=== PATIENT | male | born 1930 | race Caucasian/White ===

== ENCOUNTER 2017-11-10 09:12 | Emergency (ER) | payer MEDICARE, OTHER ==
[~2017-11-10] VITALS: Ht 193 cm; Wt 102.1 kg
[~2017-11-10 09:12] MED LIST: DOCSEN PO; HYDR1TAB94 PO; LOSHYD PO; MOMENI INH; MULTIVITAMIN; TAMS.4ER PO
[2017-11-10 09:51] LABS: Source, Urine Voided
[2017-11-10 10:00] LABS: Bilirubin, Urine Neg (Neg); Blood, Urine 4+ (Neg); Glucose Qualitative, Urine Neg (Neg); Ketones, Urine Neg (Neg); Leukocyte Esterase, Urine 1+ (Neg); Nitrite, Urine Neg (Neg); Protein, Urine 4+ (Neg); Urobilinogen, Urine NORM (Normal)
[2017-11-10] MEDS ORDERED: ASPI81CH PO (10:01)
[2017-11-10] MEDS ORDERED: ASCO500 PO (10:01)
[2017-11-10] MEDS ORDERED: Fish Oil Conc1000 MG PO (10:01)
[2017-11-10] MEDS ORDERED: Hair, Skin & N1 EACH PO (10:02)
[2017-11-10 10:14] LABS: BASOPHILS ABSOLUTE AUTO 0.06 K/mm3 (0.00-0.23); BASOPHILS PERCENT AUTO 1 % (0-2); EOSINOPHILS ABSOLUTE AUTO 0.14 K/mm3 (0.00-0.68); EOSINOPHILS PERCENT AUTO 1 % (0-6); Hematocrit 41.3 % (37.0-53.0); Hemoglobin 13.7 g/dL (13.5-17.5); IMMATURE GRAN ABSOLUTE AUTO 0.03 K/mm3 (0.00-0.10); IMMATURE GRAN PERCENT AUTO 0 % (0-1); LYMPHOCYTES ABSOLUTE AUTO 1.21 K/mm3 (0.84-5.20); LYMPHOCYTES PERCENT AUTO 11 % (21-46); MONOCYTES ABSOLUTE AUTO 0.67 K/mm3 (0.16-1.47); MONOCYTES PERCENT AUTO 6 % (4-13); Mean Corpuscular HGB 31.7 pg (26.0-34.0); Mean Corpuscular HGB Conc 33.2 g/dL (31.5-36.5); Mean Corpuscular Volume 96 fL (80-100); Mean Platelet Volume 9.7 fL (9.1-12.4); NEUTROPHILS ABSOLUTE AUTO 8.49 K/mm3 (1.96-9.15); NEUTROPHILS PERCENT AUTO 80 % (41-73); Platelet Count 231 K/mm3 (150-400); RDW Coefficient Variation 12.9 % (11.7-14.2); RDW Standard Deviation 46.2 fL (35.1-46.3); Red Blood Cell Count 4.32 M/mm3 (4.30-5.90)
[2017-11-10 10:28] LABS: Alanine Aminotransfer (ALT/SGP 15 U/L (12-78); Albumin, Blood 3.8 g/dL (3.4-5.0); Alk Phos 94 U/L (50-136); Anion Gap 6 mmol/L (6-16); Aspartate Aminotrans (AST/SGOT 16 U/L (12-37); Bilirubin, Total 0.6 mg/dL (0.1-1.0); Blood Urea Nitrogen 27 mg/dL (8-24); CO2, Blood 27 mmol/L (21-32); Calcium, Blood 8.8 mg/dL (8.5-10.1); Chloride, Blood 107 mmol/L (98-108); Creatinine, Blood 0.97 mg/dL (0.60-1.20); Globulin, Blood 3.9 g/dL (2.2-4.0); Glomerular Filtration Rate >60 (60-); Glucose, Blood 114 mg/dL (70-99); International Normalized Ratio 1.01; Potassium, Blood 3.7 mmol/L (3.5-5.5); Prothrombin Time Results 10.5 Sec (9.7-11.5); Sodium, Blood 140 mmol/L (136-145); Total Protein, Blood 7.7 g/dL (6.4-8.2)
[2017-11-10 10:42] LABS: Appearance, Urine Bloody (Clear); Color, Urine Red (P-Yellow); Red Blood Cells, Urine TNTC /hpf (0-2)
[2017-11-10 10:43] LABS: Bacteria Few /hpf; Squamous Epithelial Cells Not Seen /hpf (Few)
[2017-11-10] MEDS ORDERED: Macrodantin100 MG PO (13:18)
[2017-11-10] MEDS ORDERED: Zofran8 MG PO (13:18)
[2017-11-10] MEDS ORDERED: Percocet 5-3251 EACH PO (13:18)
== END 2017-11-10 15:17 | disposition home or self-care (01) ==
LOC: ER 09:12
PROVIDERS: Emergency Medicine
DX: R31.9 Hematuria, unspecified (principal); R33.9 Retention of urine, unspecified; Z79.82 Long term (current) use of aspirin; Z90.79 Acquired absence of other genital organ(s); N40.0 Benign prostatic hyperplasia without lower urinary tract symptoms; Z87.891 Personal history of nicotine dependence
CPT/HCPCS: 36415; 51700; 51702; 51798; 76770; 80053; 81001; 85025; 85610; 87086; 96374; 96375; 99284; J1170; J2405

== ENCOUNTER → 2019-02-24 | Outpatient (CLI) | payer MEDICARE, OTHER ==
[~2019-02-24] MED LIST changes: +ASCO500 PO; +ASPI81CH PO; +Fish Oil Conc1000 MG PO; +Hair, Skin & N1 EACH PO; +Macrodantin100 MG PO; +Percocet 5-3251 EACH PO; +Zofran8 MG PO
== END | disposition home or self-care (01) ==
LOC: LAB SHORT 12:08 → LAB 12:08
DX: R31.0 Gross hematuria (principal)
CPT/HCPCS: 87086

== ENCOUNTER 2020-08-11 07:25 | Day surgery (SDC) | payer MEDICARE, OTHER ==
[~2020-08-11] VITALS: Ht 190.5 cm; Wt 97.7 kg
[~2020-08-11 07:25] MED LIST changes: +ELIQUIS5 MG PO; +FLUT.05NI; +METO100ER PO; +PRED20 PO
--- NOTE | 2020-08-11 09:32 | NUR ---
08/11/20 0932 Natacha Cortés LATE ENTRY: PT ON CONTINOUS O2 VIA NC AT 2L DURING MED ADMINITRATION
--- NOTE | 2020-08-11 09:49 | NUR ---
08/11/20 0949 CHICHO JASSO LARGE ARM SLING GIVEN AND INVENTORIED. ALSO ICE PACK GIVEN. WEDDING RIGHT,HEARING AIDS,CLOTHING AND SHOES RETURNED IN STEPDOWN. PT GREGORIO UPON DC.
== END 2020-08-11 09:30 | disposition home or self-care (01) ==
LOC: ORSCSDS 07:25
PROVIDERS: Orthopaedic Surgery
PROC: 01N54ZZ Release Median Nerve, Percutaneous Endoscopic Approach (ICD-10-PCS; principal; 2020-08-11 08:30)
DX: G56.02 Carpal tunnel syndrome, left upper limb (principal); I10 Essential (primary) hypertension; E78.5 Hyperlipidemia, unspecified; I48.91 Unspecified atrial fibrillation; Z79.01 Long term (current) use of anticoagulants; Z79.899 Other long term (current) drug therapy
CPT/HCPCS: J2250; J3010

== ENCOUNTER 2021-02-18 01:23 | Inpatient (IN) | payer MEDICARE, OTHER ==
[~2021-02-18] VITALS: Ht 193 cm; Wt 99.8 kg
[2021-02-18 01:56] LABS: Hematocrit 46.3 % (37.0-53.0); Hemoglobin 15.5 g/dL (13.5-17.5); Mean Corpuscular HGB Conc 33.5 g/dL (31.5-36.5); Mean Corpuscular Volume 96 fL (80-100); Mean Platelet Volume 9.3 fL (9.1-12.4); Platelet Count 137 K/mm3 (150-400); RDW Coefficient Variation 13.4 % (11.7-14.2); RDW Standard Deviation 47.6 fL (35.1-46.3); Red Blood Cell Count 4.84 M/mm3 (4.30-5.90); White Blood Cell Count 2.86 K/mm3 (4.00-11.30)
[2021-02-18 02:06] LABS: Alanine Aminotransfer (ALT/SGP 14 U/L (12-78); Albumin/Globulin Ratio 0.8 (0.8-1.8); Alk Phos 73 U/L (50-136); Anion Gap 9 mmol/L (6-16); Aspartate Aminotrans (AST/SGOT 14 U/L (12-37); Bilirubin, Total 0.7 mg/dL (0.1-1.0); Blood Urea Nitrogen 26 mg/dL (8-24); Bun/Creatinine Ratio 20.6 (12.0-20.0); CO2, Blood 23 mmol/L (21-32); Calcium, Blood 8.7 mg/dL (8.5-10.1); Chloride, Blood 105 mmol/L (98-108); Creatinine, Blood 1.26 mg/dL (0.60-1.20); Glomerular Filtration Rate 57 (60-); Glucose, Blood 108 mg/dL (70-99); Potassium, Blood 4.3 mmol/L (3.5-5.5); Sodium, Blood 137 mmol/L (136-145); Troponin I <0.015 ng/mL (0.000-0.040)
[2021-02-18 02:27] LABS: BAND PERCENT MAN 28 % (0-8); BASOPHILS PERCENT MAN 0 % (0-2); EOSINOPHILS PERCENT MAN 0 % (0-6); LYMPHOCYTES ABSOLUTE MAN 0.28 K/mm3 (0.84-5.20); LYMPHOCYTES PERCENT MAN 10 % (21-46); MONOCYTES ABSOLUTE MAN 0.02 K/mm3 (0.16-1.47); MONOCYTES PERCENT MAN 1 % (4-13); NEUTROPHILS ABSOLUTE MAN 2.54 K/mm3 (1.96-9.15); SEG NEUTROPHILS PERCENT MAN 61 % (41-73); TOTAL CELLS COUNTED 100
[2021-02-18 02:30] LABS: Source, Urine Catheter
[2021-02-18 02:34] LABS: Bilirubin, Urine Neg (Neg); Blood, Urine 5+ (Neg); Glucose Qualitative, Urine Neg (Neg); Ketones, Urine 2+ (Neg); Leukocyte Esterase, Urine 3+ (Neg); Nitrite, Urine Pos (Neg); Protein, Urine 3+ (Neg); Specific Gravity, Urine 1.015 (1.003-1.022); Urobilinogen, Urine NORM (Normal)
[2021-02-18 02:37] LABS: Appearance, Urine Cloudy (Clear); Color, Urine Yellow (P-Yellow)
[2021-02-18 02:43] LABS: Bacteria Mod /hpf; Red Blood Cells, Urine TNTC /hpf (0-2); Squamous Epithelial Cells Not Seen /hpf (Few); White Blood Cells, Urine TNTC /hpf (0-5)
--- NOTE | 2021-02-18 06:38 | NUR ---
ADMIT NOTE/SHIFT SUMMARY PT ARRIVED TO ICU FROM ED VIA ED STRETCHER AT APPROX 0430. THE PT WAS SLID FROM ED STRETCHER TO ICU BED BY 4 STAFF. PT A&O X3, FOLLOWS COMMANDS, THOUGH A POOR HISTORIAN. SP02>92% ON RA. TELEMETRY READS AFIB, HR 110'S-130'S. BP SOFT AFTER 2L NS BOLUS IN ED. CALL PLACED TO MD TIERNEY. MD TIERNEY W/ ORDERS FOR 2L LR BOLUS. IF LR BOLUS' DONT RAISE BP, THEN CHANGE TO ICU STATUS AND START LEVOPHED. LEVOPHEN STARTED NOW, PT CHANGED TO ICU STATUS. PT DENIES PAIN. PT HAS FERNANDEZ CATHETER DRAINING YELLOW, CLOUDY, FOUL SMELLING URINE TO GRAVITY. PT HAD CARITO INCONTINENT BM UPON ARRIVAL TO ICU. PT ORIENTED TO ROOM, CALL LIGHT. PT STATES HIS , WHO WAS WITH HIM IN ER, WILL BE VISITING TODAY. CALL LIGHT IN REACH. WILL GIVE REPORT TO ONCOMING NURSE.
--- NOTE | 2021-02-18 08:15 | NUR ---
PREPARING TO TRANSPORT TO CT FOR ABDOMINAL VIEWS. PT UNDERSTANDS. LAB DRAW AND MEDS GIVEN. SMOOTHE TRANSIT TO CT, TO TABLE THEN BACK TO BED. PT TOLERATED WELL. HE DENIES ANY COMPLAINTS, ONLY THAT HE IS WARM. HE IS USING A TABLE FAN AND KEEPING HIS COVERS OFF. BP REMAINS LABILE, TITRATING PER SYSTOLIC NUMBER PER ORDERS. SEE FLOWSHEET. IV'S PATENT, L AND R SIDE, FERNANDEZ TO GRAVITY, HOOKED UP TO TEMPERATURE PROBE.
--- NOTE | 2021-02-18 12:57 | NUR ---
YVETTE HAS BEEN BUSY TODAY, HE HAD A CHEST XRAY AND THEN WORKED WITH PHYSICAL THERAPY. HE TRIED SOME LUNCH ONLY HAD A FEW BITES, SAYS HE DOESN'T FEEL LIKE EATING. HE VISITED WITH . HIS BLOOD PRESSURES ARE LEVELING OUT SOME AND I HAVE BEEN ABLE TO TITRATE DOWN THE LEVOPHED. HE IS PLEASANT, ORIENTED AND VERY COOPERATIVE. HE CONTINUES TO DENY ANY PAIN OR DISCOMFORT.
--- NOTE | 2021-02-18 16:08 | NUR ---
attempted to see patient will return.
--- NOTE | 2021-02-18 16:34 | NUR ---
YVETTE CALLED US IN THE ROOM TO LET US KNOW THAT HE FELT THAT HIS URINE WAS LEAKING FROM HIS BAG. AREA CHECKED, SOME GREEN SLIME NOTED WELL WETNESS BETWEEN HIS THIGHS. PT CLEANED UP, CATHETER STAT LOCK REPOSITIONED WITH LESS PULL. PT THANKFUL.
--- NOTE | 2021-02-18 18:32 | NUR ---
YVETTE HAS BEEN RESTING THIS AFTERNOON, HE EXPERIENCED ANOTHER EPISODE OF LEAKING AROUND HIS CATHETER, CLEANED UP AND GAUZE PLACED AT THE MEATUS FOR COMFORT. HE DENIES ANY PAIN, HIS FERNANDEZ CONTINUES TO DRAIN CLOUDY YELLOW WITH CHUNKY SEDIMENT, TEMPERATURE REMAINS 99-100. FLUIDS ORALLY RESTRICTED. IV INFUSING WITH ANTIBIOTIC ZOSYN AND THE LEVOPHED AT 4MCG/MIN. PT PLEASANT AND CHEERFUL.
--- NOTE | 2021-02-18 20:15 | NUR ---
ASSUMPTION OF CARE REPORT RECEIVED FROM CIRILO RAYO. PT IS A VERY PLEASANT GENTLEMAN WHO IS ALERT AND ORIENTED. PT CURRENTLY RECEIVING LEVOPHED AT 4 MCG/MIN AND NS AT 50 ML/HR. VSS, AFIB ON MONITOR HR 90-120'S, SBP >90 ON LEVOPHED, SPO2 >92% ON RA. FERNANDEZ PATENT AND DRAINING TO GRAVITY, SOME LEAKAGE T/O THE DAY, WILL CONTINUE TO MONITOR. PT WITH WEAK EXTREMITIES X 4, NEEDS ASSISTANCE WITH REPOSITIONING. CALL LIGHT WITHIN REACH, CALLS APPROPRIATELY.
[2021-02-19 03:39] LABS: Hematocrit 36.3 % (37.0-53.0); Hemoglobin 12.4 g/dL (13.5-17.5); Mean Corpuscular HGB 31.9 pg (26.0-34.0); Mean Corpuscular HGB Conc 34.2 g/dL (31.5-36.5); Mean Corpuscular Volume 93 fL (80-100); Mean Platelet Volume 10.1 fL (9.1-12.4); Platelet Count 125 K/mm3 (150-400); RDW Coefficient Variation 13.5 % (11.7-14.2); RDW Standard Deviation 46.2 fL (35.1-46.3); Red Blood Cell Count 3.89 M/mm3 (4.30-5.90)
[2021-02-19 03:49] LABS: Alanine Aminotransfer (ALT/SGP 15 U/L (12-78); Albumin, Blood 2.2 g/dL (3.4-5.0); Albumin/Globulin Ratio 0.6 (0.8-1.8); Alk Phos 56 U/L (50-136); Anion Gap 7 mmol/L (6-16); Aspartate Aminotrans (AST/SGOT 30 U/L (12-37); Bilirubin, Total 0.7 mg/dL (0.1-1.0); Blood Urea Nitrogen 17 mg/dL (8-24); Bun/Creatinine Ratio 18.9 (12.0-20.0); CO2, Blood 23 mmol/L (21-32); Calcium, Blood 7.6 mg/dL (8.5-10.1); Chloride, Blood 108 mmol/L (98-108); Globulin, Blood 3.4 g/dL (2.2-4.0); Glomerular Filtration Rate >60 (60-); Glucose, Blood 116 mg/dL (70-99); Potassium, Blood 3.5 mmol/L (3.5-5.5); Sodium, Blood 138 mmol/L (136-145); Total Protein, Blood 5.6 g/dL (6.4-8.2)
[2021-02-19 04:11] LABS: BAND PERCENT MAN 21 % (0-8); BASOPHILS PERCENT MAN 0 % (0-2); EOSINOPHILS PERCENT MAN 0 % (0-6); LYMPHOCYTES ABSOLUTE MAN 0.17 K/mm3 (0.84-5.20); LYMPHOCYTES PERCENT MAN 2 % (21-46); MONOCYTES ABSOLUTE MAN 0.25 K/mm3 (0.16-1.47); MONOCYTES PERCENT MAN 3 % (4-13); NEUTROPHILS ABSOLUTE MAN 8.17 K/mm3 (1.96-9.15); SEG NEUTROPHILS PERCENT MAN 74 % (41-73); TOTAL CELLS COUNTED 100
--- NOTE | 2021-02-19 06:39 | NUR ---
SHIFT SUMMARY PT SLEPT MAJORITY OF THIS SHIFT. VERY PLEASANT WHEN AWAKE, USES CALL LIGHT APPROPRIATELY. SPO2 >95% ON RA, SBP >90 ON 1 MCG LEVOPHED, HR 70-80'S AFIB ON MONITOR. ABLE TO MOVE SELF AROUND IN BED, NEEDS HELP WITH REPOSITIONING AND BOOSTING IN BED. FERNANDEZ PATENT, CLOUDY YELLOW URINE WITH SEDIMENT DRAINING TO GRAVITY; NO LEAKAGE NOTED THIS SHIFT.
--- NOTE | 2021-02-19 08:00 | NUR ---
YVETTE SAID HE HAD A GOOD NIGHT, HE IS FEELING BETTER TODAY AND WOULD TRY TO EAT. HE HAS DIMINISHED LUNG SOUNDS, BOWEL TONES ACTIVE, FERNANDEZ DRAINING CLOUDY YELLOW RETURN, PULSES GOOD, IV SITES INFUSING WELL. BP'S GOOD FOR LAST 4, HAVE PLACED LEVOPHED ON STANDBY.
--- NOTE | 2021-02-19 09:00 | NUR ---
YVETTE DABBLED WITH HIS BREAKFAST, HAD A FEW BITES HERE AND THERE, DRANK HIS JUICE. HIS BP LESS STABLE, RESTARTED THE LEVO @ 1MCG/MIN. REPOSITIONED TO COMFORT. ASKING FOR A COUPLE OF ITEMS FROM HIS . CONTINUES TO DENY ANY NEEDS AT THIS TIME.
--- NOTE | 2021-02-19 12:52 | NUR ---
Pt admitted for Severe Sepsis. Pt's medical history and comorbidities include: HTN, Afib, BPH, Bladder Spasm, CKD3, Chronic Morgan, and Abnormal Stress Test. Pt sitting up in chair upon arrival. Pt is A&O and denies pain at this time. Pt denies dyspnea, nausea, and anxiety. 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 Pt lives at home with his . Pt has 4 daughters who live in [place]. Pt also has grandchildren and great grandchildren. Pt reports at baseline having the ability to ambulate around the house with a cane and using furniture for stability. Pt reports being a pentecostal and denies need for tar man visit. Listened as Pt reports planning for the future and states at somepoint he will have to think about moving to an assited living or senior care. Engaged in therapeutic discussion regarding code status. Educated on life sustaining treatments including risk factors and implications of CPR. Pt reports needing to speak with his regarding his wishes. He states this will be her decision. Discussed the importance of including spouse in the conversation and the importance of considering his own wishes. Provided written information regarding CPR per request from Pt. Provided book "Hard Choices for [place] People" and instructed CPR information is in chapter one. Pt expresses appreciation of visit and reports no other concerns at this time. Instructed Pt to request this RN to return if he or his have any questions. Spoke with primary RN Priscila and discussed case. Palliative Care will remain available.
--- NOTE | 2021-02-19 18:19 | NUR ---
YVETTE REFUSED DINNER, ASKED FOR MORE TO DRINK, HIS TEMP NOTED TO BE 102.2, FACE FLUSHED, PASSIVE LEG RAISE DONE WITH NOTED CHANGE IN BP. (98/75 TO 111/82) DR. WING NOTIFIED, ORDERS RECEIVED. PT CONTINUES WITH FLUCTUATIONS IN HEART RATE AND BLOOD PRESSURE, CONTINUES TO DENY ANY COMPLAINTS OTHER THAN THIRST. HE HAS SAID HE FEELS BETTER TODAY THAN YESTERDAY. URINE OUTPUT 650ML WITH ABOUT 1100 OF PO FLUIDS. LEVOPHED HAS BEEN OFF SINCE D/C'D BY . PT CONTINUES IN GOOD SPIRITS AND JOKING WITH STAFF.
--- NOTE | 2021-02-19 22:10 | NUR ---
UPDATE SPOKE WITH HOSPITALIST ANDERSON REGARDING PT'S SBP IN 80'S AND HR 130-140'S. NEW ORDERS PLACED FOR DIGOXIN AND 500 ML NS BOLUS.
[2021-02-20 03:15] LABS: Hematocrit 34.5 % (37.0-53.0); Hemoglobin 11.8 g/dL (13.5-17.5); Mean Corpuscular HGB Conc 34.2 g/dL (31.5-36.5); Mean Corpuscular Volume 94 fL (80-100); Mean Platelet Volume 9.6 fL (9.1-12.4); Platelet Count 102 K/mm3 (150-400); RDW Coefficient Variation 13.3 % (11.7-14.2); RDW Standard Deviation 45.8 fL (35.1-46.3); Red Blood Cell Count 3.69 M/mm3 (4.30-5.90); White Blood Cell Count 5.71 K/mm3 (4.00-11.30)
[2021-02-20 03:43] LABS: BAND PERCENT MAN 11 % (0-8); BASOPHILS PERCENT MAN 0 % (0-2); EOSINOPHILS PERCENT MAN 0 % (0-6); LYMPHOCYTES % ATYPICAL MANUAL 1 % (0-0); LYMPHOCYTES ABSOLUTE MAN 0.34 K/mm3 (0.84-5.20); LYMPHOCYTES PERCENT MAN 5 % (21-46); MONOCYTES ABSOLUTE MAN 0.28 K/mm3 (0.16-1.47); MONOCYTES PERCENT MAN 5 % (4-13); NEUTROPHILS ABSOLUTE MAN 5.08 K/mm3 (1.96-9.15); SEG NEUTROPHILS PERCENT MAN 78 % (41-73); TOTAL CELLS COUNTED 100
--- NOTE | 2021-02-20 05:49 | NUR ---
SHIFT SUMMARY PT GOT MINIMAL SLEEP THIS SHIFT. FERNANDEZ LEAKING THIS AM, BLADDER SCAN DONE NO RETENTION, FERNANDEZ BALLOON DEFLATED HAD 7 ML'S REINFLATED WITH 10 ML'S. CONTINUES TO LEAK. URINE WITH SEDIMENT, CLOUDY, PINK TINGED. AFIB ON MONITOR HR 80-90'S, SBP 100-115'S, SPO2 96% ON RA. DIGOXIN 0.25 MG GIVEN TWICE THIS SHIFT TO DECREASE HR FROM 140'S. 500 ML NS BOLUS GIVEN FOR SBP'S IN 80'S. NS CURRENTLY INFUSING AT 75 ML/HR. PT DENIED CHEST PAIN T/O SHIFT. ABLE TO REPOSITION SELF WITH MINIMAL HELP. CALL LIGHT USED APPROPRIATELY.
[2021-02-20 07:05] LABS: Anion Gap 4 mmol/L (6-16); Blood Urea Nitrogen 16 mg/dL (8-24); Bun/Creatinine Ratio 18.1 (12.0-20.0); CO2, Blood 25 mmol/L (21-32); Calcium, Blood 7.5 mg/dL (8.5-10.1); Chloride, Blood 109 mmol/L (98-108); Creatinine, Blood 0.88 mg/dL (0.60-1.20); Glomerular Filtration Rate >60 (60-); Glucose, Blood 108 mg/dL (70-99); Potassium, Blood 3.6 mmol/L (3.5-5.5); Sodium, Blood 138 mmol/L (136-145)
--- NOTE | 2021-02-20 09:00 | NUR ---
YVETTE HAS BEEN UP TO THE BSC X2, AND SITTING IN THE CHAIR. HE DECLINED BREAKFAST BUT SAID HE WOULD TRY AN ENSURE SHAKE, WHICH HE TOLERATED WELL. HE IS STRONGER TODAY WITH HIS STANDING AND TRANSFERRING FROM CHAIR TO BSC AND BED TO STANDING.
[2021-02-20 16:02] LABS: Appearance, Urine Turbid (Clear); Bilirubin, Urine Neg (Neg); Blood, Urine 5+ (Neg); Color, Urine Red (P-Yellow); Glucose Qualitative, Urine Neg (Neg); Ketones, Urine 1+ (Neg); Leukocyte Esterase, Urine 3+ (Neg); Nitrite, Urine Neg (Neg); Protein, Urine 3+ (Neg); Specific Gravity, Urine 1.015 (1.003-1.022); Urobilinogen, Urine 1+ (Normal)
[2021-02-20 16:08] LABS: Source, Urine Catheter
[2021-02-20 16:09] LABS: Mucus Mod (0-Heavy); Red Blood Cells, Urine TNTC /hpf (0-2)
[2021-02-20 16:10] LABS: Bacteria Few /hpf; Squamous Epithelial Cells Not Seen /hpf (Few); Transitional Epithelial Cells Rare /hpf (0-Rare)
--- NOTE | 2021-02-20 18:20 | NUR ---
YVETTE HAS BEEN LESS THIRSTY TODAY, HE DID EAT A LARGE PORTION OF HIS DINNER. HE HAS HAD ONLY 300ML OF URINE OUTPUT BUT HIS DEPENDS WAS VERY WET PRIOR TO THE CATHETER CHANGE. SINCE THE CATHETER CHANGE HE HAS NOTED THAT THERE HAS BEEN NO NOTICEABLE LEAKING. THE RETURN CONTINUES CLOUDY, RED TINGED. IV CONTINUES AT 75ML HR.
--- NOTE | 2021-02-20 19:40 | NUR ---
CARE ASSUMPTION BEDSIDE REPORT GIVEN BY GIRMA KERR TO THIS RN AT BEDSIDE, PT AGREED WITH REPORT AND HAD NOTHING TO ADD. CATHETER WAS ASSESSED WHICH SHOWED MINIMAL TO NO LEAKING. PT DENIED ANY PAIN OR NAUSEA AT THIS TIME. CATHETER CARE PROVIDED AT THIS TIME.VSS AND TEMP OF 97.0. HR AFIB 60-90'S. PT DENIED ANY FURTHER NEEDS AT THIS TIME, CALL LIGHT IN HAND OF PT WHO WAS WATCHING TV, [place].
--- NOTE | 2021-02-21 04:59 | NUR ---
ASBESTOS WORKER HELPER SUMMARY PT IS AXO X4 AND USES CALL LIGHT APPROPRIATCanaryHop. HEART RYTHYMA ND RATE HAS REMAINED AFIB 60-92 BPM ALL SHIFT. SBP ARE STABLE IN THE 100'S ALTHOUGH THEY DROP TO HIGH 80'S WHEN THE PT IS SLEEPING BUT WILL GO UP TO THE 100'S IF YOU WAKE HIM UP TO TAKE BP. O2 SATS DROPPED <90% WHILE PT WAS SLEEPING SO PT PLACED ON 2L VIA NC AND REMAINED >92% ALL SHIFT. PT'S FERNANDEZ CONTINUES TO LEAK BUT APPEARS SIGNIFICANTLY BETTER THE PT HAD 1300ML OF URINE OUTPUT INTO CATHETER BAG THIS SHIFT. PT REMAINED AFEBRILE THIS SHIFT. LUNGS ARE CLEAR WDIM BASES. PT DENIED ANY PAIN OR NAUSEA THIS SHIFT. WILL REPORT TO ONCOMING RN.
[2021-02-21 07:51] LABS: BASOPHILS ABSOLUTE AUTO 0.02 K/mm3 (0.00-0.23); BASOPHILS PERCENT AUTO 0 % (0-2); EOSINOPHILS ABSOLUTE AUTO 0.06 K/mm3 (0.00-0.68); EOSINOPHILS PERCENT AUTO 1 % (0-6); Hematocrit 35.7 % (37.0-53.0); IMMATURE GRAN ABSOLUTE AUTO 0.02 K/mm3 (0.00-0.10); IMMATURE GRAN PERCENT AUTO 0 % (0-1); LYMPHOCYTES ABSOLUTE AUTO 0.76 K/mm3 (0.84-5.20); LYMPHOCYTES PERCENT AUTO 15 % (21-46); MONOCYTES ABSOLUTE AUTO 0.41 K/mm3 (0.16-1.47); MONOCYTES PERCENT AUTO 8 % (4-13); Mean Corpuscular HGB 31.9 pg (26.0-34.0); Mean Corpuscular HGB Conc 33.6 g/dL (31.5-36.5); Mean Corpuscular Volume 95 fL (80-100); NEUTROPHILS ABSOLUTE AUTO 3.95 K/mm3 (1.96-9.15); NEUTROPHILS PERCENT AUTO 76 % (41-73); Platelet Count 111 K/mm3 (150-400); RDW Coefficient Variation 13.2 % (11.7-14.2); RDW Standard Deviation 46.1 fL (35.1-46.3); Red Blood Cell Count 3.76 M/mm3 (4.30-5.90); White Blood Cell Count 5.22 K/mm3 (4.00-11.30)
[2021-02-21 08:05] LABS: Anion Gap 3 mmol/L (6-16); Blood Urea Nitrogen 12 mg/dL (8-24); Bun/Creatinine Ratio 13.8 (12.0-20.0); CO2, Blood 27 mmol/L (21-32); Calcium, Blood 7.7 mg/dL (8.5-10.1); Chloride, Blood 109 mmol/L (98-108); Creatinine, Blood 0.87 mg/dL (0.60-1.20); Glomerular Filtration Rate >60 (60-); Glucose, Blood 86 mg/dL (70-99); Potassium, Blood 3.3 mmol/L (3.5-5.5); Sodium, Blood 139 mmol/L (136-145)
--- NOTE | 2021-02-21 08:25 | NUR ---
Care Assumed 0700 Pt sitting in bed watching TV. A/O X 4, calm and cooperative. Able to state correct location, event, and date. NS @ 75 ml/hr. Morgan in place with scant to no drainage at insertion site, output of 500 ML of cloudy yellow sedimented urine with clots. Pt in AFIB hr 60-90's. BP stable on 1 L NC when sleeping and on RA when awake, SPO2 > 90%. Dr. Dempsey in to see patient and pt changed to PCU status. Recieved order to replace K, see emar. Call light within reach of pt.
--- NOTE | 2021-02-21 08:35 | NUR ---
Provider visit- Dr. Zapata Pt changed to medical floor status per Dr. Zapata.
--- NOTE | 2021-02-21 10:05 | NUR ---
Report given to medical floor RM [id number] Report given to CIRILO Kapadia. All questions answered and updated on pt status. Nurse made aware of Dr. Hoang stating abx are ok for angio later this week. Pt remains in Afib, HR 90'S. VSS. A/O X 4. All of pts belongings will be sent with patient. Pts called and updated. Pt speaking to on phone currently.
[2021-02-21] MEDS ORDERED: Prednisone10 MG PO (13:19)
--- NOTE | 2021-02-21 15:14 | NUR ---
PT TRANSFERRED FROM ICU 16 AT 1045 VIA W/C, PT AMBULATED SBA TO CHAIR. CALL LIGHT INSTRUCTION AND SAFETY PROTOCOL WENT OVER. PT IS A/O X3, RESP EVEN UNLABORED. IVF RESTARTED. AWAITING TELE BOX.
--- NOTE | 2021-02-21 18:43 | NUR ---
SUMM- PT A/O X3, MILD FORGETFUL. PLEASANT, KNOWS LIMITS. ABLE TO AMBULATE WITH WALKER SBA TO BATHROOM. GOOD STRENGTH, STEADY. TOLERATING FOOD AND FLUIDS. LUNGS CLEAR, NO SOB. VSS. WILL REPORT TO JO-ANN KERR.
--- NOTE | 2021-02-22 04:11 | NUR ---
SHIFT SUMMARY: VSS. AFEB. AAOX3. PLEASANT AND COOPERATIVE. ABLE TO COMMUNICATE NEEDS. F/C PATENT AND DRAINING STRAW COLORED URINE W/ SMALL AMTS OF WHITE SEDIMENT. DENIES ABD DISCOMFORT. AFIB, HR AVERAGING 60'S-80'S TONIGHT PER AMMONIUM NITRATE CRYSTALLIZER. HR DID JUMPT TO 130 FOR LESS THAN A COUPLE MINUTES. PT DENIES CHEST PAIN. DENIES SOB. MAINTENANCE IV FLUIDS INFUSING. NO ACUTE OVERNIGHT EVENTS. WCTM.
--- NOTE | 2021-02-22 05:00 | NUR ---
CALL TO HOSPITALIST / PAUSES PER 8TH GRADE MATHEMATICS TEACHER, PT NOTED TO HAVE PAUSES IN HR. INCREASED FREQUENCY OVER THE PAST 1/2 HR. PT IS ASYMPTOMATIC. AWAKE AND INTERACTING W/ STAFF AT THIS TIME. STATES HE FEELS FINE. SPOKE W/ DR. HARE. ORDERS TO ADD MG+ LEVEL TO AM LABS.
[2021-02-22 05:37] LABS: BASOPHILS ABSOLUTE AUTO 0.02 K/mm3 (0.00-0.23); BASOPHILS PERCENT AUTO 0 % (0-2); EOSINOPHILS PERCENT AUTO 2 % (0-6); Hematocrit 35.7 % (37.0-53.0); Hemoglobin 11.8 g/dL (13.5-17.5); Mean Corpuscular HGB 31.4 pg (26.0-34.0); Mean Corpuscular HGB Conc 33.1 g/dL (31.5-36.5); Mean Corpuscular Volume 95 fL (80-100); Mean Platelet Volume 10.1 fL (9.1-12.4); Platelet Count 126 K/mm3 (150-400); RDW Coefficient Variation 13.2 % (11.7-14.2); RDW Standard Deviation 45.6 fL (35.1-46.3); Red Blood Cell Count 3.76 M/mm3 (4.30-5.90); White Blood Cell Count 6.63 K/mm3 (4.00-11.30)
[2021-02-22 05:42] LABS: IMMATURE GRAN ABSOLUTE AUTO 0.03 K/mm3 (0.00-0.10); IMMATURE GRAN PERCENT AUTO 1 % (0-1); LYMPHOCYTES ABSOLUTE AUTO 1.36 K/mm3 (0.84-5.20); LYMPHOCYTES PERCENT AUTO 21 % (21-46); MONOCYTES ABSOLUTE AUTO 0.44 K/mm3 (0.16-1.47); MONOCYTES PERCENT AUTO 7 % (4-13); NEUTROPHILS ABSOLUTE AUTO 4.68 K/mm3 (1.96-9.15); NEUTROPHILS PERCENT AUTO 71 % (41-73)
[2021-02-22 06:10] LABS: Anion Gap 4 mmol/L (6-16); Blood Urea Nitrogen 15 mg/dL (8-24); Bun/Creatinine Ratio 18.8 (12.0-20.0); CO2, Blood 27 mmol/L (21-32); Calcium, Blood 8.2 mg/dL (8.5-10.1); Chloride, Blood 108 mmol/L (98-108); Glomerular Filtration Rate >60 (60-); Glucose, Blood 79 mg/dL (70-99); Magnesium, Blood 2.2 mg/dL (1.6-2.4); Potassium, Blood 3.6 mmol/L (3.5-5.5); Sodium, Blood 139 mmol/L (136-145)
[2021-02-22] MEDS ORDERED: PROBIOTIC1 EA13 PO (13:44)
[2021-02-22] MEDS ORDERED: CEFDINIR300 M4 PO (13:44)
[2021-02-22] MEDS ORDERED: NITROPATCH TOP (14:44)
[2021-02-22] MEDS ORDERED: ALDACTONE25 MG PO (14:45)
[2021-02-22] MEDS ORDERED: ALEN70 PO (14:45)
[2021-02-22] MEDS ORDERED: DONEPEZIL HCL10 MG PO (14:46)
[2021-02-22] MEDS ORDERED: LOSA25 PO (14:46)
--- NOTE | 2021-02-22 15:51 | NUR ---
DC INSTRUCTIONS PT AND SPOUSE VERB UNDERSTANDING OF DC INSTRUCTIONS: MEDS, FOLLOW UP, DIET, ACTIVITY.
--- NOTE | 2021-02-22 16:29 | NUR ---
DISCHARGE PT DISCHARGED TO HOME. MEDICATIONS AND INSTRUCTIONS WERE EXPLAINED TO PT AND PT'S SPOUSE. THEY REPORT THEY UNDERSTAND. IV REMOVED WITHOUT DIFFICULTY. PT TRANSFERRED TO PRIVATE VEHICLE VIA WHEELCHAIR. BELONGINGS WITH PT.
[2021-03-16] MEDS ORDERED: TRIM100 PO (15:07)
[2021-04-04] MEDS ORDERED: LOSA25 PO (14:36)
== END 2021-02-22 15:56 | disposition home health service (06) | DRG 698 ==
LOC: ER 01:23 → ICUW 03:33 → MEDS 02-21 10:29
PROVIDERS: Emergency Medicine; Family Medicine; Hospitalist; ADMIT Internal Medicine
PROC: 02HV33Z Insertion of Infusion Device into Superior Vena Cava, Percutaneous Approach (ICD-10-PCS; principal; 2021-02-18)
PROC: 3E043XZ Introduction of Vasopressor into Central Vein, Percutaneous Approach (ICD-10-PCS; 2021-02-18)
DX: T83.511A Infection and inflammatory reaction due to indwelling urethral catheter, initial encounter (principal); A41.51 Sepsis due to Escherichia coli [E. coli]; R65.21 Severe sepsis with septic shock; I13.0 Hypertensive heart and chronic kidney disease with heart failure and stage 1 through stage 4 chronic kidney disease, or unspecified chronic kidney disease; I50.22 Chronic systolic (congestive) heart failure; N39.0 Urinary tract infection, site not specified; I48.91 Unspecified atrial fibrillation; Z96.0 Presence of urogenital implants; M35.3 Polymyalgia rheumatica; N18.30 Chronic kidney disease, stage 3 unspecified; R94.39 Abnormal result of other cardiovascular function study; Z88.8 Allergy status to other drugs, medicaments and biological substances; Z79.01 Long term (current) use of anticoagulants; Z79.899 Other long term (current) drug therapy; Z90.49 Acquired absence of other specified parts of digestive tract; Z98.890 Other specified postprocedural states; Z90.89 Acquired absence of other organs; Z79.52 Long term (current) use of systemic steroids; Z87.891 Personal history of nicotine dependence; Y84.6 Urinary catheterization as the cause of abnormal reaction of the patient, or of later complication, without mention of misadventure at the time of the procedure
CPT/HCPCS: 36415; 51702; 71045; 74176; 80048; 80053; 81001; 82533; 83605; 83690; 83735; 83880; 84484; 85025; 87040; 87077; 87086; 87186; 93005; 93010; 96361; 96365; 97110; 97112; 97116; 97162; 97530; 99285-25; A9270; J0696; J1160; J1720; J2543; J7030; J7040; J7060; J7120; J7512

== ENCOUNTER 2021-03-17 17:03 | Inpatient (IN) | payer MEDICARE, OTHER ==
[~2021-03-17] VITALS: Ht 193 cm; Wt 95.1 kg
[~2021-03-17 17:03] MED LIST changes: +ALDACTONE25 MG PO; +ALEN70 PO; +CEFDINIR300 M4 PO; +DONEPEZIL HCL10 MG PO; +LOSA25 PO; +NITROPATCH TOP; +PROBIOTIC1 EA13 PO; +Prednisone10 MG PO; +TRIM100 PO
[2021-03-17] MEDS ORDERED: FISH OIL-VIT D1 EACH PO (17:44)
[2021-03-17] MEDS ORDERED: PROBIOTIC1 EA13 PO (17:44)
[2021-03-17 18:05] LABS: Hematocrit 44.6 % (37.0-53.0); Hemoglobin 14.7 g/dL (13.5-17.5); Mean Corpuscular HGB 31.5 pg (26.0-34.0); Mean Corpuscular Volume 96 fL (80-100); Mean Platelet Volume 9.6 fL (9.1-12.4); Platelet Count 151 K/mm3 (150-400); RDW Coefficient Variation 14.1 % (11.7-14.2); RDW Standard Deviation 49.6 fL (35.1-46.3); Red Blood Cell Count 4.66 M/mm3 (4.30-5.90); White Blood Cell Count 12.62 K/mm3 (4.00-11.30)
[2021-03-17 18:20] LABS: Alanine Aminotransfer (ALT/SGP 17 U/L (12-78); Albumin, Blood 3.2 g/dL (3.4-5.0); Albumin/Globulin Ratio 0.8 (0.8-1.8); Alk Phos 64 U/L (50-136); Anion Gap 8 mmol/L (6-16); Aspartate Aminotrans (AST/SGOT 13 U/L (12-37); Bilirubin, Total 0.7 mg/dL (0.1-1.0); Blood Urea Nitrogen 20 mg/dL (8-24); Bun/Creatinine Ratio 17.1 (12.0-20.0); CO2, Blood 25 mmol/L (21-32); Calcium, Blood 9.1 mg/dL (8.5-10.1); Chloride, Blood 106 mmol/L (98-108); Creatinine, Blood 1.17 mg/dL (0.60-1.20); Globulin, Blood 3.8 g/dL (2.2-4.0); Glomerular Filtration Rate >60 (60-); Glucose, Blood 113 mg/dL (70-99); Potassium, Blood 4.5 mmol/L (3.5-5.5); Sodium, Blood 139 mmol/L (136-145)
[2021-03-17 18:39] LABS: BAND PERCENT MAN 5 % (0-8); BASOPHILS ABSOLUTE MAN 0.12 K/mm3 (0.00-0.23); BASOPHILS PERCENT MAN 1 % (0-2); EOSINOPHILS PERCENT MAN 0 % (0-6); LYMPHOCYTES ABSOLUTE MAN 0.25 K/mm3 (0.84-5.20); LYMPHOCYTES PERCENT MAN 2 % (21-46); METAMYELOCYTE ABSOLUTE MAN 0.12 K/mm3 (0.00-0.00); METAMYELOCYTE PERCENT MAN 1 % (0-0); MONOCYTES ABSOLUTE MAN 0.37 K/mm3 (0.16-1.47); MONOCYTES PERCENT MAN 3 % (4-13); NEUTROPHILS ABSOLUTE MAN 11.73 K/mm3 (1.96-9.15); SEG NEUTROPHILS PERCENT MAN 88 % (41-73); TOTAL CELLS COUNTED 100
[2021-03-17 18:59] LABS: Source, Urine Catheter
[2021-03-17 19:04] LABS: Appearance, Urine Cloudy (Clear); Bilirubin, Urine Neg (Neg); Blood, Urine 5+ (Neg); Color, Urine Brown (P-Yellow); Glucose Qualitative, Urine Neg (Neg); Ketones, Urine 1+ (Neg); Leukocyte Esterase, Urine 3+ (Neg); Nitrite, Urine Pos (Neg); Protein, Urine 4+ (Neg); Specific Gravity, Urine 1.015 (1.003-1.022); Urobilinogen, Urine NORM (Normal)
[2021-03-17] MEDS ORDERED: Nitroglycerin1 EAC3 TOP (19:05)
[2021-03-17] MEDS ORDERED: TRIM100 PO (19:10)
[2021-03-17] MEDS ORDERED: LOSARTAN POTASS25 M2 PO (19:11)
[2021-03-17] MEDS ORDERED: METO50ER PO (19:11)
[2021-03-17 19:49] LABS: Bacteria Many /hpf; White Blood Cells, Urine 50-100 /hpf (0-5)
[2021-03-17 19:50] LABS: Red Blood Cells, Urine 50-100 /hpf (0-2)
[2021-03-17 19:51] LABS: Squamous Epithelial Cells Rare /hpf (Few)
--- NOTE | 2021-03-17 23:07 | NUR ---
ADMIT NOTE PT ARRIVED TO PCU FROM ED VIA ED STRETCHER AT APPROX 2145. PT WAS SLID BY 4 STAFF FROM ED STRETCHER TO PCU BED. PT A&OX4. SP02>92% ON 1L NC. TELEMETRY READS AFIB, HR 120'S. DENIES PAIN. SUPRAPUBIC CATHETER DRAINING TO GRAVITY, NEWLY PLACED, BANDAGES C/D/I. PT ORIENTED TO ROOM, CALL LIGHT.
--- NOTE | 2021-03-18 01:22 | NUR ---
PT UPDATE PT HR INCREASED TO AFIB 130'S. CALL PLACED TO MD CONTRERAS. MD CONTRERAS W/ ORDERS FOR ONE TIME ORDER OF METOPROLOL.
--- NOTE | 2021-03-18 03:54 | NUR ---
PT UPDATE PT HR CONTINUES TO BE ELEVATED. CALL PLACED TO MD CONTRERAS. MD CONTRERAS WITH ORDERS FOR ANOTHER DOSE OF METOPROLOL PO. WILL CONTINUE TO MONITOR.
[2021-03-18 04:01] LABS: Hematocrit 40.6 % (37.0-53.0); Hemoglobin 13.1 g/dL (13.5-17.5); Mean Corpuscular HGB 31.5 pg (26.0-34.0); Mean Corpuscular HGB Conc 32.3 g/dL (31.5-36.5); Mean Corpuscular Volume 98 fL (80-100); Platelet Count 140 K/mm3 (150-400); RDW Coefficient Variation 14.2 % (11.7-14.2); RDW Standard Deviation 50.9 fL (35.1-46.3); Red Blood Cell Count 4.16 M/mm3 (4.30-5.90)
[2021-03-18 04:26] LABS: Alanine Aminotransfer (ALT/SGP 16 U/L (12-78); Albumin, Blood 2.7 g/dL (3.4-5.0); Albumin/Globulin Ratio 0.8 (0.8-1.8); Alk Phos 55 U/L (50-136); Anion Gap 6 mmol/L (6-16); Aspartate Aminotrans (AST/SGOT 7 U/L (12-37); Bilirubin, Total 0.8 mg/dL (0.1-1.0); Blood Urea Nitrogen 19 mg/dL (8-24); Bun/Creatinine Ratio 17.6 (12.0-20.0); CO2, Blood 26 mmol/L (21-32); Calcium, Blood 7.9 mg/dL (8.5-10.1); Chloride, Blood 108 mmol/L (98-108); Creatinine, Blood 1.08 mg/dL (0.60-1.20); Globulin, Blood 3.5 g/dL (2.2-4.0); Glomerular Filtration Rate >60 (60-); Glucose, Blood 104 mg/dL (70-99); Sodium, Blood 140 mmol/L (136-145); Total Protein, Blood 6.2 g/dL (6.4-8.2)
[2021-03-18 04:33] LABS: BAND PERCENT MAN 8 % (0-8); BASOPHILS PERCENT MAN 0 % (0-2); EOSINOPHILS PERCENT MAN 0 % (0-6); LYMPHOCYTES ABSOLUTE MAN 0.47 K/mm3 (0.84-5.20); LYMPHOCYTES PERCENT MAN 4 % (21-46); MONOCYTES ABSOLUTE MAN 0.47 K/mm3 (0.16-1.47); MONOCYTES PERCENT MAN 4 % (4-13); NEUTROPHILS ABSOLUTE MAN 10.94 K/mm3 (1.96-9.15); SEG NEUTROPHILS PERCENT MAN 84 % (41-73); TOTAL CELLS COUNTED 100
--- NOTE | 2021-03-18 05:53 | NUR ---
SHIFT SUMMARY PT A&OX4. SP02>92% ON 1L NC. TELEMETRY READS AFIB, HR 120'S-150'S. CONTINUOUS ELEVATED HR, SEE PREVIOUS NOTES. PT DENIES PAIN. FLUIDS INFUSED PER EMAR. SUPRAPUBIC CATHETER DRAINING TO GRAVITY, BANDAGE C/D/I. PT DID NOT SLEEP MOST OF SHIFT. IN ROOM RESTING, WATCHING TV CURRENTLY. CALL LIGHT IN REACH. WILL GIVE REPORT TO ONCOMING NURSE.
--- NOTE | 2021-03-18 18:23 | NUR ---
SHIFT NOTE PT HAS BEEN RESTING WELL IN BED T/O THE DAY. NADN. PRESSURES ARE SOFT, BUT VSS. PT STS THAT HE IS FEELING "MUCH BETTER THAN LAST NIGHT". SUPRAPUBIC CATH DRAINING WELL TO GRAVITY. PT DENIES SOB AND CP. OTHERWISE NO ACUTE CHANGES DURING THIS SHIFT.
--- NOTE | 2021-03-19 06:43 | NUR ---
SHIFT SUMMARY PT AOX4 T/O SHIFT. BREATHING EVEN AND UNLABORED. SATS 94-96% ON RA. PT HR 120-150 BPM AT START OF SHIFT, HELD LOSARTAN AND ADMINISTERED ORDERED METOPROLOL DUE TO HR AND LOWER SBP OF MID TO HIGH 90'S. PT SUPRAPUBIC CATH EMPTIED 200 MLS AT A TIME T/O NIGHT. YELLOW-JUANITO COLORED URINE OUT. HR DOWN TO 100-TEENS. PT DENIES CP T/O SHIFT. HELD NITRO PATCH DUE TO PT'S PERSISTENT LOW SBP IN 90'S AFTER DISCUSSING WITH TERMINAL CLERK. PT C/O DRY COUGH AT START OF SHIFT, STATED RESOLVED TOWARDS END OF SHIFT. COUGH DROPS ORDERED PRN. SALINE LOCKED.
--- NOTE | 2021-03-19 12:30 | NUR ---
TACHYCARDIA NOTIFIED BY STAFF MECHANICAL ENGINEER OF ELEVATED HR BETWEEN 116-120, AFIB, AT 1140. WHITESMITH ALSO REPORTED THAT PT WAS HIGH 140 AT TIMES BUT NOT SUSTAINING. DR. WING WAS NOTIFIED OF ELEVATED HR, LOPRESSOR GIVEN TO MANAGED HR. IV LOPRESSOR HELPED TO LOWER HR TO LESS THAN 120. PT HAS REMAINED ALERT AND ORIENTED WITHOUT SYMPTOMS OF ELEVATED HR. PT DENIES DIZZINESS AND CHEST PAIN. WILL CONTINUE TO MONITOR.
[2021-03-19] MEDS ORDERED: CEFD300 PO (13:30)
--- NOTE | 2021-03-19 15:01 | NUR ---
TACHYCARDIA FLOAT OPERATOR NOTIFIED THIS RN OF HR >120 SUSTAINED AT 1414. BP CHECKED AT SHOWED 93/67. PT ALERT AND ORIENTED, HE REMAINS ASYMPTOMATIC. DR. WING NOTIFIED AND SAID TO MONITOR PT. PT'S HR IS CURRENTLY IS AVERAGING <120; HOWEVER IT CONTINUES TO JUMP >120 PERIODICALLY. PT IS ASYMPTOMATIC AT THIS TIME. VSS, EXCEPT FOR TACHYCARDIA. BLANKET FOLDER JAYE NOTIFIED. WILL CONTINUE TO MONITOR PT AT THIS TIME.
--- NOTE | 2021-03-19 15:35 | NUR ---
LFA FOREARM IV SITE C/D/I WITH CLEAR VIEW DRESSING AND INSERTION SITE SKIN APPEARS NORMAL IN COLOR AND HAS NORMAL TEMPERATURE AND SKIN TURGOR. ADENIKE IV SITE NORMAL APPEARANCE AND DRESSING IS C/D/I
--- NOTE | 2021-03-19 18:15 | NUR ---
STARTED PUSHING FLUIDS WHEN DARK URINE AND HYPOTENSION WERE OBSERVED, PT TOLERATING WELL AND ACCEPTING, URINE LIGHTENED IN COLOR TO CLEAR AND YELLOW AND BP IS RELATIVELY STABLE W/O SIGNIFICANT HYPOTENSION.
--- NOTE | 2021-03-19 19:45 | NUR ---
TACHYCARDIA PT CONTINUES TO BE TACHYCARDIC BETWEEN 112-120 AVERAGE WITH HR OCCASIONALLY SPIKING TO 120-140. DR. WING NOTIFIED AND REPORTED TO OBSERVE PT UNLESS HIS HR SUSTAINS >130 OR PT BECOMES SYMTOMATIC.
--- NOTE | 2021-03-19 19:58 | NUR ---
SHIFT SUMMARY: PT ALERT AND ORIENTED, PLEASANT AND COOPERATIVE WITH CARE. INTERMITTENT TACHYCARDIA AND HYPOTENSION THROUGHOUT SHIFT, MD NOTIFIED AND ORDERED X1 IV METOPROLOL WHICH REDUCED PULSE EFFECTIVELY FOR ABOUT AN HOUR, FROM THERE PULSE HAS RANGED FROM 80'S TO HIGH 120'S AND MD GAVE ORDER TO CONTACT IF PT REMAINS IN HIGH 120'S. RECEIVED ORDERS TO D/C WHICH WERE CANCELLED D/T TACHYCARDIA AND HYPOTENSION. ASYMPTOMATIC AND DENIES ANY CP/SOB/DIZZINESS. FLUIDS ENCOURAGED FOR HYPOTENSION AND DARK URINE, URINE LIGHTENED AND BP DID NOT SIGNIFICANTLY DECREASE AGAIN. TELEMETRY SHOWING ATRIAL FIBRILLATION AND TACHYCARDIA THIS SHIFT. PT DENIED PAIN THROUGHOUT SHIFT.
--- NOTE | 2021-03-19 20:05 | NUR ---
SHIFT SUMMARY DISCHARGE HOME WAS CANCELLED R/T TACHYCARDIA (SEE NOTES). PT WAS IN GOOD SPIRITS TODAY. HE IS HOPING TO RETURN HOME TOMORROW. PT HAS DENIED PAIN T/O THE DAY. VSS.
--- NOTE | 2021-03-19 20:10 | NUR ---
SHIFT SUMMARY PT WAS WEANED FROM BIPAP TO 2L NC. PALLIATIVE CARE DISCUSSED COMFORT CARE WITH PT TODAY. FAMILY AND PT APPEAR RELUCTANT TO TAKE THAT STEP. PT WAS CHANGED TO DNR TODAY. PT HAS SPEECH THERAPY EVAL AND WAS PLACED ON MECHANICAL SOFT DIET. HE DID NOT TOLERATE MECHANICAL SOFT DIET AND COUGHED DURING THE MEAL. PT WAS CHANGED TO PUREE DIET AND TOLERATED WELL. PT'S FAMILY VISITED AND WAS SUPPORTIVE. PT WAS MORE AWAKE WHEN HIS WAS VISITING. PT ALERT AND ORIENTED X4 T/O THE SHIFT. PT ON TELE AND IN PACED IN AFIB, RATE CONTROLLED. VSS. REPORT GIVEN TO JO-ANN KERR.
--- NOTE | 2021-03-20 08:16 | NUR ---
SHIFT SUMMARY PT AOX4 T/O SHIFT, BREATHING EVEN AND UNLABORED, AFIB 90'S-110'S FROM 120'S FOLLOWING EVENING DOSE OF METOPROLOL PO. THIS RN HELD LOSARTAN FOR SECOND NIGHT IN A ROW DUE TO SBP 110'S-120'S. PT'S SUPRAPUBIC BAG DRAINED T/O SHIFT. 200-300+ MLS EACH TIME DRAINED. PT SELF-REPOSITIONS IN BED T/O SHIFT. PT EXPRESSES DESIRE AND READINESS TO GO HOME TODAY IF ABLE. THIS RN HOLDS NITRO PATCH IN AM AGAIN D/T SBP 110'S. BILATERAL FA IV'S SALINE LOCKED.
--- NOTE | 2021-03-20 12:50 | NUR ---
DISCHARGE SUMMARY PT A&Ox3; CALM AND COOPERATIVE WITH CARE. PT RESTING IN BED. UP 1 PERSON ASSIST TO CHAIR WITH GAITBELT AND WALKER. PT DENIES PAIN, CHEST PAIN, NAUSEA AND DIZZINESS. PER TELE PT HR AFIB WITH PVC 90-110'S, TOUCHING 130'S WITH AMBULATION BUT QUICKLY TRENDS DOWN. OTHER VSS. NO OTHER ACUTE CHANGES NOTED. PT AND SPOUSE EDUCATED ON DISCHARGE INSTRUCTIONS, FOLLOW UP APPOINTMENT AND MEDICATIONS. PRESCRIPTION CALLED TO RAMILA HEWITT PER PT REQUEST. EDUCATED PT SPOUSE TO CALL FOR FOLLOW UP SUNDAY. PT LEFT ROOM VIA WHEELCHAIR AT 1253
[2021-04-04] MEDS ORDERED: LOSA25 PO (14:36)
== END 2021-03-20 12:38 | disposition home or self-care (01) | DRG 698 ==
LOC: ER 17:03 → PCU 21:07
PROVIDERS: Emergency Medicine; ADMIT Internal Medicine
PROC: 0T9B30Z Drainage of Bladder with Drainage Device, Percutaneous Approach (ICD-10-PCS; principal; 2021-03-17)
DX: T83.511A Infection and inflammatory reaction due to indwelling urethral catheter, initial encounter (principal); A41.51 Sepsis due to Escherichia coli [E. coli]; R65.20 Severe sepsis without septic shock; I50.22 Chronic systolic (congestive) heart failure; N39.0 Urinary tract infection, site not specified; I11.0 Hypertensive heart disease with heart failure; N40.1 Benign prostatic hyperplasia with lower urinary tract symptoms; R33.8 Other retention of urine; M35.3 Polymyalgia rheumatica; F03.90 Unspecified dementia, unspecified severity, without behavioral disturbance, psychotic disturbance, mood disturbance, and anxiety; I48.91 Unspecified atrial fibrillation; Z88.8 Allergy status to other drugs, medicaments and biological substances; Z79.899 Other long term (current) drug therapy; Z79.01 Long term (current) use of anticoagulants; Z79.52 Long term (current) use of systemic steroids; Z90.49 Acquired absence of other specified parts of digestive tract; Z98.890 Other specified postprocedural states; Z87.891 Personal history of nicotine dependence; Y84.6 Urinary catheterization as the cause of abnormal reaction of the patient, or of later complication, without mention of misadventure at the time of the procedure
CPT/HCPCS: 36415; 49418; 76937; 80048; 80053; 81001; 83605; 85007; 85025; 85027; 85610; 87040; 87077; 87086; 87186; 94760; 96361; 96365; 99152; 99153; 99284-25; A9270; C1729; C1750; C1769; C9113; J0696; J1720; J2250; J3010; J7030; J7040; J7050; Q9967

== ENCOUNTER 2021-04-05 08:33 | Day surgery (SDC) | payer MEDICARE, OTHER ==
[~2021-04-05] VITALS: Ht 188 cm; Wt 91.0 kg
[~2021-04-05 08:33] MED LIST changes: +CEFD300 PO; +FISH OIL-VIT D1 EACH PO; +LOSARTAN POTASS25 M2 PO; +METO50ER PO; +Nitroglycerin1 EAC3 TOP
--- NOTE | 2021-04-05 09:20 | NUR ---
PT PREPPED FOR ANGIOGRAM PER PROTOCOL, MEDS UPDATED WITH OVER PHONE, DR MANSFIELD IN TO DISCUSS PLAN OF CARE W PT, IV STARTED BY JIMMY KERR L AC 20G, PT TAKEN TO CAGE MANAGER BY RADHA KERR, GIVEN [id number] PER V/O FROM SHYLA.
--- NOTE | 2021-04-05 13:27 | NUR ---
Patient is lying in bed and alert. Patient tells me about the procedure that was recently performed on him and then talks at length about his family (spouse and 4 grown daughters and thier families), his joel (Sabianism) and about the inspiration he gets from his family. I provide therapeutic listening and prayer. Patient responds well and shows signs of restored joel.
--- NOTE | 2021-04-05 17:28 | NUR ---
SHIFT SUMMARY PT ALERT AND ORIENTED. VSS. HR AFIB 90-100'S. PT DENIES ANY PAIN. RIGHT RADIAL SITE WITH TR BAND REMOVED AND TEGADERM AND ARM BOARD IN PLACE. NO SIGNS OF BLEEDING OR HEMATOMA NOTED, BUT SLIGHT BRUISING PROXIMAL TO INSERTION SITE. PT FOLLOWING ARM RESTRICTIONS. NS INFUSING PER ORDERS. PT SITTING UP EATING DINNER. WILL CONTINUE TO MONITOR AND REPORT TO ONCOMING RN. CALL LIGHT IN REACH
[2021-04-06 05:21] LABS: BASOPHILS ABSOLUTE AUTO 0.05 K/mm3 (0.00-0.23); BASOPHILS PERCENT AUTO 1 % (0-2); EOSINOPHILS ABSOLUTE AUTO 0.24 K/mm3 (0.00-0.68); EOSINOPHILS PERCENT AUTO 4 % (0-6); Hematocrit 39.5 % (37.0-53.0); IMMATURE GRAN ABSOLUTE AUTO 0.01 K/mm3 (0.00-0.10); IMMATURE GRAN PERCENT AUTO 0 % (0-1); LYMPHOCYTES ABSOLUTE AUTO 1.27 K/mm3 (0.84-5.20); LYMPHOCYTES PERCENT AUTO 19 % (21-46); MONOCYTES ABSOLUTE AUTO 0.58 K/mm3 (0.16-1.47); MONOCYTES PERCENT AUTO 9 % (4-13); Mean Corpuscular HGB 31.3 pg (26.0-34.0); Mean Corpuscular HGB Conc 32.9 g/dL (31.5-36.5); Mean Corpuscular Volume 95 fL (80-100); Mean Platelet Volume 9.6 fL (9.1-12.4); NEUTROPHILS ABSOLUTE AUTO 4.44 K/mm3 (1.96-9.15); NEUTROPHILS PERCENT AUTO 67 % (41-73); Platelet Count 184 K/mm3 (150-400); RDW Coefficient Variation 13.8 % (11.7-14.2); RDW Standard Deviation 48.7 fL (35.1-46.3); Red Blood Cell Count 4.15 M/mm3 (4.30-5.90); White Blood Cell Count 6.59 K/mm3 (4.00-11.30)
[2021-04-06 05:57] LABS: Anion Gap 4 mmol/L (6-16); Blood Urea Nitrogen 17 mg/dL (8-24); Bun/Creatinine Ratio 19.8 (12.0-20.0); CO2, Blood 27 mmol/L (21-32); Calcium, Blood 8.4 mg/dL (8.5-10.1); Chloride, Blood 109 mmol/L (98-108); Creatinine, Blood 0.86 mg/dL (0.60-1.20); Glomerular Filtration Rate >60 (60-); Glucose, Blood 92 mg/dL (70-99); Potassium, Blood 3.8 mmol/L (3.5-5.5); Sodium, Blood 140 mmol/L (136-145)
--- NOTE | 2021-04-06 06:33 | NUR ---
SHIFT SUMMARY PT AOX4, AFIB 90'S-100'S. DENIES CP. RADIAL SITE REMAINED INTACT, NO BLEEDING, SKIN SOFT SURROUNDING SITE, STRONG RADIAL PULSE. SCANT BRUISING TO R ARM DISTAL FROM RADIAL SITE. CONSISTENT OUTPUT FROM SUPRAPUBIC CATHETER. NO ACUTE CHANGES. IV SALINE LOCKED. PLAN TO DC TODAY.
[2021-04-06] MEDS ORDERED: CLOP75 PO (09:29)
--- NOTE | 2021-04-06 10:13 | NUR ---
PT DISCHARGE PT PROVIDED WITH DISCHARGE INSTRUCTIONS PER PHYSICIAN. NEW MEDICATION FAXED INTO PT'S PREFERRED PHARMACY BY REFLECTOR DRILLER AND DEBURRER. TELE REMOVED. IV REMOVED. PT'S HAS PT'S STENT CARD. PT BROUGHT TO 'S VEHICLE BY SKILLS INSTRUCTOR BY WHEELCHAIR WITH ALL BELONGINGS.
== END 2021-04-06 10:10 | disposition home or self-care (01) ==
LOC: MHTC 08:33 → PCU 10:43 → MHTC 04-06 10:10
PROVIDERS: Internal Medicine Cardiovascular Disease
PROC: 027034Z Dilation of Coronary Artery, One Artery with Drug-eluting Intraluminal Device, Percutaneous Approach (ICD-10-PCS; principal; 2021-04-05)
PROC: 4A023N7 Measurement of Cardiac Sampling and Pressure, Left Heart, Percutaneous Approach (ICD-10-PCS; principal; 2021-04-05)
PROC: B2111ZZ Fluoroscopy of Multiple Coronary Arteries using Low Osmolar Contrast (ICD-10-PCS; principal; 2021-04-05)
DX: I25.10 Atherosclerotic heart disease of native coronary artery without angina pectoris (principal); I25.5 Ischemic cardiomyopathy; I48.91 Unspecified atrial fibrillation; I10 Essential (primary) hypertension; E78.5 Hyperlipidemia, unspecified; Z88.1 Allergy status to other antibiotic agents; Z79.01 Long term (current) use of anticoagulants; Z79.899 Other long term (current) drug therapy; Z20.822 Contact with and (suspected) exposure to COVID-19
CPT/HCPCS: 36415; 76937; 80048; 85025; 85347; 92978; 92979; 93005; 93010; 93454; 99152; 99153; A9270; C1725; C1753; C1769; C1874; C1887; C1894; C9600; J2250; J2370; J3010; J7030; J7040; J7050; J7512; Q9967

== ENCOUNTER 2021-05-14 00:01 | Inpatient (IN) | payer MEDICARE, OTHER ==
[~2021-05-14] VITALS: Ht 193 cm; Wt 93.0 kg
[~2021-05-14 00:01] MED LIST changes: +CLOP75 PO
[2021-05-14 00:26] LABS: BASOPHILS ABSOLUTE AUTO 0.04 K/mm3 (0.00-0.23); BASOPHILS PERCENT AUTO 0 % (0-2); Hematocrit 44.9 % (37.0-53.0); Hemoglobin 14.9 g/dL (13.5-17.5); LYMPHOCYTES ABSOLUTE AUTO 0.59 K/mm3 (0.84-5.20); LYMPHOCYTES PERCENT AUTO 4 % (21-46); MONOCYTES ABSOLUTE AUTO 1.22 K/mm3 (0.16-1.47); MONOCYTES PERCENT AUTO 9 % (4-13); Mean Corpuscular HGB 31.4 pg (26.0-34.0); Mean Corpuscular HGB Conc 33.2 g/dL (31.5-36.5); Mean Corpuscular Volume 95 fL (80-100); Mean Platelet Volume 9.9 fL (9.1-12.4); Platelet Count 146 K/mm3 (150-400); RDW Coefficient Variation 14.1 % (11.7-14.2); RDW Standard Deviation 49.4 fL (35.1-46.3); Red Blood Cell Count 4.75 M/mm3 (4.30-5.90); White Blood Cell Count 14.01 K/mm3 (4.00-11.30)
[2021-05-14 00:27] LABS: EOSINOPHILS PERCENT AUTO 0 % (0-6); IMMATURE GRAN ABSOLUTE AUTO 0.07 K/mm3 (0.00-0.10); IMMATURE GRAN PERCENT AUTO 1 % (0-1); NEUTROPHILS ABSOLUTE AUTO 12.09 K/mm3 (1.96-9.15); NEUTROPHILS PERCENT AUTO 86 % (41-73)
[2021-05-14 00:36] LABS: Albumin, Blood 3.1 g/dL (3.4-5.0); Albumin/Globulin Ratio 0.8 (0.8-1.8); Bun/Creatinine Ratio 18.1 (12.0-20.0); Calcium, Blood 8.8 mg/dL (8.5-10.1); Creatinine, Blood 1.16 mg/dL (0.60-1.20); Globulin, Blood 3.7 g/dL (2.2-4.0); Potassium, Blood 3.9 mmol/L (3.5-5.5); Total Protein, Blood 6.8 g/dL (6.4-8.2)
[2021-05-14 00:51] LABS: Source, Urine Catheter
[2021-05-14 00:53] LABS: Appearance, Urine Cloudy (Clear); Bilirubin, Urine Neg (Neg); Blood, Urine 5+ (Neg); Color, Urine Yellow (P-Yellow); Glucose Qualitative, Urine Neg (Neg); Ketones, Urine Neg (Neg); Leukocyte Esterase, Urine 3+ (Neg); Nitrite, Urine Neg (Neg); Protein, Urine 3+ (Neg); Urobilinogen, Urine NORM (Normal)
[2021-05-14] MEDS ORDERED: CEFU250T47 PO (00:56)
[2021-05-14] MEDS ORDERED: FISH OIL 1,0001 EAC8 PO (00:57)
[2021-05-14 00:59] LABS: Bacteria Many /hpf; Squamous Epithelial Cells Not Seen /hpf (Few); White Blood Cells, Urine TNTC /hpf (0-5)
[2021-05-14 01:42] LABS: SARS-Cov-2 (COVID-19) PCR, MMC NEGATIVE (NEGATIVE)
[2021-05-14] MEDS ORDERED: PROBIOTIC1 EA13 PO (04:04)
[2021-05-14 07:40] LABS: Hematocrit 42.6 % (37.0-53.0); Hemoglobin 13.7 g/dL (13.5-17.5); Mean Corpuscular HGB 31.1 pg (26.0-34.0); Mean Corpuscular HGB Conc 32.2 g/dL (31.5-36.5); Mean Corpuscular Volume 97 fL (80-100); Mean Platelet Volume 9.9 fL (9.1-12.4); Platelet Count 131 K/mm3 (150-400); RDW Coefficient Variation 14.4 % (11.7-14.2); RDW Standard Deviation 51.8 fL (35.1-46.3); Red Blood Cell Count 4.41 M/mm3 (4.30-5.90); White Blood Cell Count 16.88 K/mm3 (4.00-11.30)
[2021-05-14 07:50] LABS: Anion Gap 9 mmol/L (6-16); Blood Urea Nitrogen 21 mg/dL (8-24); Bun/Creatinine Ratio 19.6 (12.0-20.0); CO2, Blood 22 mmol/L (21-32); Calcium, Blood 8.3 mg/dL (8.5-10.1); Chloride, Blood 110 mmol/L (98-108); Creatinine, Blood 1.07 mg/dL (0.60-1.20); Glomerular Filtration Rate >60 (60-); Glucose, Blood 96 mg/dL (70-99); Potassium, Blood 3.9 mmol/L (3.5-5.5); Sodium, Blood 141 mmol/L (136-145)
--- NOTE | 2021-05-14 08:16 | NUR ---
PT ADMITTED FROM ER FOR SEPSIS AT APPROX 0400. PT A&O X4. TELE PLACED SHOWING A/FIB AT 107. PT DENIES CP. SUPRAPUBIC CATH DRAINING DARK, CLOUDY URINE. SEDIMENT PRESENT. PT PLACED ON 2LO2 VIA NC FOR O2 OF 88% ON ARRIVAL. PT C/O DIARRHEA WHICH STARTED TODAY. INCONTINENT. ATTENDS PLACED. PT UNABLE TO STAND TO USE BSC D/T WEAKNESS. 2 MAX ASSIST FOR BEDPAN. IVF INFUSING PER EMAR.
[2021-05-14 08:32] LABS: BAND PERCENT MAN 5 % (0-8); BASOPHILS PERCENT MAN 0 % (0-2); EOSINOPHILS PERCENT MAN 0 % (0-6); LYMPHOCYTES ABSOLUTE MAN 1.18 K/mm3 (0.84-5.20); LYMPHOCYTES PERCENT MAN 7 % (21-46); MONOCYTES ABSOLUTE MAN 1.35 K/mm3 (0.16-1.47); MONOCYTES PERCENT MAN 8 % (4-13); NEUTROPHILS ABSOLUTE MAN 14.34 K/mm3 (1.96-9.15); SEG NEUTROPHILS PERCENT MAN 80 % (41-73); TOTAL CELLS COUNTED 100
--- NOTE | 2021-05-14 11:08 | NUR ---
AM NOTE... ASSUMED CARE OF PT AT 0700, PT IS A&Ox4 AND VERY WEAK, PT THE PT'S HE IS IND AT HOME AND DRIVES HIMSELF TO HIS DOCTOR APPOINTMENTS. PT IS ON RA WITH O2 SATS >90%, L/S CLEAR IN THE UPPER LOBES DIM IN THE LOWER. PT IS IN AFIB IN THE 110'S-120'S, PT'S BP SOFT BUT STABLE. PT DENIES ANY CHEST PAIN/PRESSURE OR SOB. BT PRESENT AND HYPERACTIVE, ABD IS SOFT AND NONTENDER TO PALP. PT'S SUPERPUBIC CATH IS PATENT AND DRAINING TO GRAVITY, PT'S URINE IS DARK YELLOW WITH SEDIMENT. WILL CONTINUE TO MONITOR.
--- NOTE | 2021-05-14 18:15 | NUR ---
SHIFT SUMMARY... NO ACUTE NEGATIVE CHANGES NOTED THIS SHIFT. PT HAS REFUSED ALL MEALS THIS SHIFT BUT SAYS "I DON'T EAT WHEN I DON'T FEEL GOOD." PT'S BP HAS BEEN SOFT BUT STABLE WITH MAPS >65, PT HAS BEEN IN AFIB IN THE 100'S AT TIMES TOUCHING IN THE 130'S-140'S BUT NOT SUSTAINING. PT WAS GIVEN A 500MLS BOLUS AND HIS NS WAS CHANGED FROM 75MLS/HR TO 100MLS/HR WHICH AFTER THE BOLUS HIS HR IMPROVED BACK TO THE LOW TO MID 100'S. PT HAS DENIED ANY CHEST PAIN/PRESSURE. PT DENIES ANY PAIN OR SOB. PT'S SUPER PUBIC CATH DRAINED 1200MLS OF DARK JUANITO URINE WITH SEDIMENT. PT DID NOT HAVE A BM THIS SHIFT. PT CONTINUES TO BE A&Ox4 BUT VERY WEAK. PT HAS REFUSED TO GET OUT OF BED THIS SHIFT. PT'S WAS UPDATED ON THE PT'S CONDITION AND PLAN OF CARE. CALL LIGHT IN REACH WILL CONTINUE TO MONITOR UNTIL REPORT IS GIVEN TO ONCOMING RN.
--- NOTE | 2021-05-14 21:05 | NUR ---
PER HEMATOLOGY PT IS GROWING GRAM NEGATIVE BACILLI IN 2 SETS OF OF BLOOD CULTURES. PT CURRENTLY ON CEFEPIME Q8. NOTIFIED HOSPITALIST. ORDER TO CONTINUE WITH SCHEDULED CEFEPIME FOR ABX.
[2021-05-15 04:00] LABS: BASOPHILS ABSOLUTE AUTO 0.02 K/mm3 (0.00-0.23); BASOPHILS PERCENT AUTO 0 % (0-2); Hematocrit 39.6 % (37.0-53.0); Hemoglobin 12.8 g/dL (13.5-17.5); LYMPHOCYTES ABSOLUTE AUTO 0.82 K/mm3 (0.84-5.20); LYMPHOCYTES PERCENT AUTO 7 % (21-46); MONOCYTES ABSOLUTE AUTO 0.95 K/mm3 (0.16-1.47); MONOCYTES PERCENT AUTO 8 % (4-13); Mean Corpuscular HGB 31.4 pg (26.0-34.0); Mean Corpuscular HGB Conc 32.3 g/dL (31.5-36.5); Mean Corpuscular Volume 97 fL (80-100); Mean Platelet Volume 9.9 fL (9.1-12.4); Platelet Count 117 K/mm3 (150-400); RDW Coefficient Variation 14.3 % (11.7-14.2); RDW Standard Deviation 51.1 fL (35.1-46.3); Red Blood Cell Count 4.07 M/mm3 (4.30-5.90)
[2021-05-15 04:03] LABS: EOSINOPHILS PERCENT AUTO 0 % (0-6); IMMATURE GRAN ABSOLUTE AUTO 0.06 K/mm3 (0.00-0.10); IMMATURE GRAN PERCENT AUTO 1 % (0-1); NEUTROPHILS ABSOLUTE AUTO 9.45 K/mm3 (1.96-9.15); NEUTROPHILS PERCENT AUTO 84 % (41-73)
[2021-05-15 04:15] LABS: Anion Gap 6 mmol/L (6-16); Blood Urea Nitrogen 21 mg/dL (8-24); Bun/Creatinine Ratio 19.4 (12.0-20.0); CO2, Blood 25 mmol/L (21-32); Calcium, Blood 7.8 mg/dL (8.5-10.1); Chloride, Blood 108 mmol/L (98-108); Creatinine, Blood 1.08 mg/dL (0.60-1.20); Glomerular Filtration Rate >60 (60-); Glucose, Blood 93 mg/dL (70-99); Magnesium, Blood 2.5 mg/dL (1.6-2.4); Phosphorus, Blood 2.2 mg/dL (2.5-4.9); Sodium, Blood 139 mmol/L (136-145)
--- NOTE | 2021-05-15 05:37 | NUR ---
SHIFT SUMMARY: NO SIGNIFICANT CHANGES THIS SHIFT. PT A&O X4. A/FIB PER TELEMETRY. PT'S HR INCREASING TO UPPER 120'S AT TIMES BUT WILL THEN DROP BACK DOWN TO LOW 100'S. PT DENIES CP AND SOB. LUNGS CLEAR AND DIMINISHED T/O. O2 STABLE ON RA. SUPRAPUBIC CATHETER DRAINING DARK JUANITO URINE. 900CC EMPTIED. IVF COMPLETED. IV ABX INFUSING WITH TKO FLUIDS. PT APPEARS TO BE RESTING MOST OF SHIFT.
--- NOTE | 2021-05-15 07:44 | NUR ---
5MG IV METOPROLOL PUSHED FOR HR SUSTAINING IN UPPER 120'S-130'S PER ORDERS.
--- NOTE | 2021-05-15 08:27 | NUR ---
PER HOLD LOPRESSOR P.O WITH HEART RATE 96 AFIB AND B.P. 91/54
--- NOTE | 2021-05-15 11:28 | NUR ---
PER [employer] ACTOR PATIENT HAS BEEN RUNNING FROM 90 TO 110 AFIB.
--- NOTE | 2021-05-15 16:14 | NUR ---
PER DR. JIMENEZ GIVE 2.5 MG LOPRESSOR IV NOW
--- NOTE | 2021-05-15 18:02 | NUR ---
ALERT. ORIENTED. ABLE TO MAKE NEEDS KNOWN.ON R.A. DR JIMENEZ AWARE OF HEART RATE T/O DAY. TRENDING DOWN.POOR APPETITE. CATH CARE DONE WITH FERNANDEZ DRAINING TO GRAVITY OF DARK TEA COLORED URINE WITH SMALL CLOTS. TELE ON. UNLABORED RESPIRATIONS. WCTM
[2021-05-16 04:29] LABS: BASOPHILS ABSOLUTE AUTO 0.02 K/mm3 (0.00-0.23); BASOPHILS PERCENT AUTO 0 % (0-2); EOSINOPHILS ABSOLUTE AUTO 0.06 K/mm3 (0.00-0.68); EOSINOPHILS PERCENT AUTO 1 % (0-6); Hematocrit 39.6 % (37.0-53.0); Hemoglobin 13.2 g/dL (13.5-17.5); IMMATURE GRAN ABSOLUTE AUTO 0.04 K/mm3 (0.00-0.10); IMMATURE GRAN PERCENT AUTO 1 % (0-1); LYMPHOCYTES ABSOLUTE AUTO 1.04 K/mm3 (0.84-5.20); LYMPHOCYTES PERCENT AUTO 14 % (21-46); MONOCYTES ABSOLUTE AUTO 0.62 K/mm3 (0.16-1.47); MONOCYTES PERCENT AUTO 8 % (4-13); Mean Corpuscular HGB 31.1 pg (26.0-34.0); Mean Corpuscular HGB Conc 33.3 g/dL (31.5-36.5); Mean Corpuscular Volume 93 fL (80-100); NEUTROPHILS ABSOLUTE AUTO 5.84 K/mm3 (1.96-9.15); NEUTROPHILS PERCENT AUTO 77 % (41-73); RDW Coefficient Variation 14.1 % (11.7-14.2); Red Blood Cell Count 4.24 M/mm3 (4.30-5.90); White Blood Cell Count 7.62 K/mm3 (4.00-11.30)
[2021-05-16 04:36] LABS: Mean Platelet Volume 10.8 fL (9.1-12.4); Platelet Count 123 K/mm3 (150-400)
[2021-05-16 04:48] LABS: Anion Gap 7 mmol/L (6-16); Blood Urea Nitrogen 19 mg/dL (8-24); Bun/Creatinine Ratio 21.9 (12.0-20.0); CO2, Blood 24 mmol/L (21-32); Calcium, Blood 8.5 mg/dL (8.5-10.1); Chloride, Blood 109 mmol/L (98-108); Creatinine, Blood 0.87 mg/dL (0.60-1.20); Glomerular Filtration Rate >60 (60-); Glucose, Blood 101 mg/dL (70-99); Potassium, Blood 3.4 mmol/L (3.5-5.5); Sodium, Blood 140 mmol/L (136-145)
--- NOTE | 2021-05-16 05:15 | NUR ---
SHIFT SUMMARY PATIENT IS ALERT AND ORIENTED X4. PLEASANT AND COOPERATIVE. LUNGS CLEAR, 02 SATS 96% ON RA. A. FIB @110s. DENIES CP/PRESSURE. SUPRAPUBIC CATH CLEAN AND DRAINING. VERBAL CUES FOR REPOSITIONING, PT STATES HE STILL FEEL REALLY WEAK. VSS, NO ACUTE CHANGES. CALL LIGHT IN REACH.
[2021-05-16] MEDS ORDERED: DRON2.5 PO (12:45)
[2021-05-16] MEDS ORDERED: CEFD300 PO (12:45)
--- NOTE | 2021-05-16 13:25 | NUR ---
DISCHARGE NOTE PT IS AOX4 AND PLEASANT. PT IVS REMOVED BY THIS RN. DC INSTRUCTIONS AND MEDICATIONS REVIEWED WITH PT AND WHO VERBALIZED UNDERSTANDING. MEDICATIONS FAXED TO [facility]. PT SUPRAPUBIC CATHETER IN PLACE WITH LEG DRAINAGE BAG ATTACHED. PT ASSISTED INTO HOME CLOTHING BY . PT TRANSPORTED OFF UNIT VIA WHEELCHAIR BY TECH. PT LEFT BUILDING IN PRIVATE VEHICLE WITH FAMILY.
== END 2021-05-16 13:45 | disposition home health service (06) | DRG 698 ==
LOC: ER 00:01 → SURS 02:32
PROVIDERS: Family Medicine; Physician Assistant; Student in an Organized Health Care Education/Training Program; ADMIT Internal Medicine
DX: T83.518A Infection and inflammatory reaction due to other urinary catheter, initial encounter (principal); A41.51 Sepsis due to Escherichia coli [E. coli]; N39.0 Urinary tract infection, site not specified; I48.20 Chronic atrial fibrillation, unspecified; I50.22 Chronic systolic (congestive) heart failure; Z66 Do not resuscitate; Z20.822 Contact with and (suspected) exposure to COVID-19; Y84.6 Urinary catheterization as the cause of abnormal reaction of the patient, or of later complication, without mention of misadventure at the time of the procedure; I25.10 Atherosclerotic heart disease of native coronary artery without angina pectoris; N40.0 Benign prostatic hyperplasia without lower urinary tract symptoms; M35.3 Polymyalgia rheumatica; I11.0 Hypertensive heart disease with heart failure; Z87.440 Personal history of urinary (tract) infections; Z90.89 Acquired absence of other organs; Z98.890 Other specified postprocedural states; Z90.79 Acquired absence of other genital organ(s); Z87.891 Personal history of nicotine dependence; Z79.01 Long term (current) use of anticoagulants; Z79.52 Long term (current) use of systemic steroids; Z79.83 Long term (current) use of bisphosphonates; Z79.899 Other long term (current) drug therapy; Z79.02 Long term (current) use of antithrombotics/antiplatelets; Z95.5 Presence of coronary angioplasty implant and graft
CPT/HCPCS: 36415; 71045; 80048; 80053; 81001; 83605; 83735; 84100; 85025; 87040; 87077; 87086; 87186; 93005; 93010; 96361-59; 96365-59; 97116; 97162; 97165; 97530; 97535; 99285-25; A9270; C2627; J0692; J0696; J1720; J3480; J7030; J7040; J7050; J7120; J7512; Q0167; U0004

== ENCOUNTER → 2021-07-07 | Outpatient (CLI) | payer MEDICARE, OTHER ==
[~2021-07-07] MED LIST changes: +CEFU250T47 PO; +DRON2.5 PO; +FISH OIL 1,0001 EAC8 PO
== END | disposition home or self-care (01) ==
LOC: LAB SHORT 08:35 → LAB 08:35
DX: M35.3 Polymyalgia rheumatica (principal)
CPT/HCPCS: 85651

== ENCOUNTER → 2021-10-18 | Outpatient (CLI) | payer MEDICARE, OTHER ==
[2021-10-19 07:11] LABS: A/G RATIO 1.6 (1.2-2.2); ALKALINE PHOSPHATASE, S 71 IU/L (44-121); ALT (SGPT) 8 IU/L (0-44); AST (SGOT) 16 IU/L (0-40); BASO (ABSOLUTE) 0.1 x10E3/uL (0.0-0.2); BASOS 1 % (Not Estab.); BILIRUBIN, TOTAL 0.6 mg/dL (0.0-1.2); BUN 17 mg/dL (8-27); BUN/CREATININE RATIO 18 (10-24); CALCIUM, SERUM 9.6 mg/dL (8.6-10.2); CARBON DIOXIDE, TOTAL 30 mmol/L (20-29); CHLORIDE, SERUM 103 mmol/L (96-106); CHOLESTEROL, TOTAL 188 mg/dL (100-199); CREATININE, SERUM 0.94 mg/dL (0.76-1.27); EGFR IF AFRICN AM 83 (>59); EGFR IF NONAFRICN AM 72 (>59); EOS 2 % (Not Estab.); EOS (ABSOLUTE) 0.2 x10E3/uL (0.0-0.4); GLOBULIN, TOTAL 2.6 g/dL (1.5-4.5); GLUCOSE, SERUM 112 mg/dL (65-99); HDL CHOLESTEROL 58 mg/dL (>39); HEMATOCRIT 44.4 % (37.5-51.0); HEMOGLOBIN 15.1 g/dL (13.0-17.7); IMMATURE GRANULOCYTES 0 % (Not Estab.); LDL CHOLESTEROL CALC 111 mg/dL (0-99); LYMPHS 8 % (Not Estab.); MCH 31.5 pg (26.6-33.0); MCV 93 fL (79-97); MONOCYTES 6 % (Not Estab.); MONOCYTES(ABSOLUTE) 0.7 x10E3/uL (0.1-0.9); NEUTROPHILS 83 % (Not Estab.); NEUTROPHILS (ABSOLUTE) 9.5 x10E3/uL (1.4-7.0); PLATELETS 258 x10E3/uL (150-450); POTASSIUM, SERUM 4.4 mmol/L (3.5-5.2); PROTEIN, TOTAL, SERUM 6.7 g/dL (6.0-8.5); RBC 4.79 x10E6/uL (4.14-5.80); RDW 13.3 % (11.6-15.4); SODIUM, SERUM 142 mmol/L (134-144); TRIGLYCERIDES 108 mg/dL (0-149); VLDL CHOLESTEROL CAL 19 mg/dL (5-40); WBC 11.4 x10E3/uL (3.4-10.8)
== END | disposition home or self-care (01) ==
LOC: LAB SHORT 09:20
PROVIDERS: Family Medicine
DX: Z13.29 Encounter for screening for other suspected endocrine disorder (principal); I48.91 Unspecified atrial fibrillation; I10 Essential (primary) hypertension
CPT/HCPCS: 80053; 80061; 84443; 85025; 85651

== ENCOUNTER 2021-12-01 08:33 | Day surgery (SDC) | payer MEDICARE, OTHER ==
[~2021-12-01] VITALS: Ht 193 cm; Wt 93.1 kg
[~2021-12-01 08:33] MED LIST changes: +NITR100CA PO; +OMEGA-3 1,0501 EACH PO; +PRED1 PO; +PRED5 PO
[2021-12-01] MEDS ORDERED: DIGOX250 MCG PO (09:41)
--- NOTE | 2021-12-01 09:51 | NUR ---
12/01/21 0951 Natacha Cortés CALL LIGHT WITHIN REACH. TREY KERR IN ROOM TO HELP ASSIST WITH PRE-OP. TETRACAIN DROPS IN RIGHT EYE AT 0933 PLEDGETT AT 0936. PT ON AFIB HR IRREGULAR FROM 32BPM-100BPM. DR. CLAY AWARE. 3 LEAD EKG STRIP ORDERED. WILL REPORT TO DR. CLAY. NO FURTHER ORDERS GIVEN AT THIS TIME. PT DENIES ANY PAIN OR DIZZINESS.
== END 2021-12-01 11:05 | disposition home or self-care (01) ==
LOC: ORSCSDS 08:33
PROVIDERS: Ophthalmology
PROC: 08RJ3JZ Replacement of Right Lens with Synthetic Substitute, Percutaneous Approach (ICD-10-PCS; principal; 2021-12-01 10:00)
DX: H25.11 Age-related nuclear cataract, right eye (principal); H25.13 Age-related nuclear cataract, bilateral; I48.91 Unspecified atrial fibrillation; I10 Essential (primary) hypertension; E78.5 Hyperlipidemia, unspecified; E78.00 Pure hypercholesterolemia, unspecified; Z79.02 Long term (current) use of antithrombotics/antiplatelets; Z79.01 Long term (current) use of anticoagulants; Z79.899 Other long term (current) drug therapy
CPT/HCPCS: J2001; J2250; J3010; J3301; J7040; V2632

== ENCOUNTER 2021-12-29 09:15 | Day surgery (SDC) | payer MEDICARE, OTHER ==
[~2021-12-29] VITALS: Ht 193 cm; Wt 91.6 kg
[~2021-12-29 09:15] MED LIST changes: +DIGOX250 MCG PO
--- NOTE | 2021-12-29 09:51 | NUR ---
12/29/21 0951 Natacha Cortés CALL LIGHT WITHIN REACH. TETRACAINE AT 0943 PLEDGETT AT 0989
== END 2021-12-29 11:08 | disposition home or self-care (01) ==
LOC: ORSCSDS 09:15
PROVIDERS: Ophthalmology
PROC: 08RK3JZ Replacement of Left Lens with Synthetic Substitute, Percutaneous Approach (ICD-10-PCS; principal; 2021-12-29 10:30)
DX: H25.12 Age-related nuclear cataract, left eye (principal); I10 Essential (primary) hypertension; I48.91 Unspecified atrial fibrillation; E78.00 Pure hypercholesterolemia, unspecified; Z87.891 Personal history of nicotine dependence; Z79.01 Long term (current) use of anticoagulants; Z79.899 Other long term (current) drug therapy
CPT/HCPCS: J2001; J2250; J3010; J3301; J7040; V2632

== ENCOUNTER → 2022-02-02 | Outpatient (CLI) | payer MEDICARE, OTHER | END | disposition home or self-care (01) | LOC: LAB SHORT 08:57 | DX: M35.3 Polymyalgia rheumatica (principal) | CPT/HCPCS: 85651 ==